=== PATIENT | male | born 1935 | race Hispanic/Latino ===

== ENCOUNTER 2022-07-29 19:06 | Emergency (ER) | payer MEDICARE, MEDICAID ==
[2022-07-29] VITALS (17 sets, daily range): BP systolic 127–160; BP diastolic 60–75
[2022-07-29 20:31] LABS: BASO% 1.7 % (0-3); EOS% 3.3 % (0-8); HEMATOCRIT 32.6 % (39.0-50.0); LYMPH% 52.8 % (15-41); MEAN CELL VOLUME 94.2 fL CALC (80.0-100.0); MEAN CORPUSCULAR HGB 31.8 pG CALC (26.0-32.0); MEAN CORPUSCULAR HGB CONC 33.7 g/dL CAL (32.0-36.0); MONO% 21.1 % (2-13); NEUT# 0.63 thou/uL (1.82-7.42); NEUT% 21.1 % (42-76); RED BLOOD COUNT 3.46 mill/uL (4.70-6.10)
[2022-07-29 21:41] LABS: ALBUMIN 3.5 g/dL (3.2-5.0); ALKALINE PHOSPHATASE 77 u/l (38-126); ANION GAP 11 (6-22 (CALC)); BILIRUBIN, TOTAL 0.1 mg/dL (0.2-1.3); BUN 29 mg/dL (8-23); BUN/CREATININE RATIO 23 (12-20 (CALC)); CARBON DIOXIDE 20 mmol/l (22-30); CHLORIDE 110 mmol/l (95-108); CREATININE 1.3 mg/dL (0.7-1.3); GFR FOR AFR.AMER. > 60 ML/MIN (>=60 (CALC)); GFR OTHER RACES 52 ML/MIN (>=60 (CALC)); POTASSIUM 5.1 mmol/l (3.5-5.1); SGOT/AST 25 u/l (19-48); SODIUM 135 mmol/l (137-146); TOTAL PROTEIN 6.4 g/dL (6.3-8.2)
[2022-07-30] VITALS (7 sets, daily range): BP systolic 121–152; BP diastolic 64–74
== END 2022-07-30 01:43 | disposition home or self-care (01) ==
LOC: ED 19:06
PROVIDERS: Emergency Medicine
DX: R51.9 Headache, unspecified (principal); I10 Essential (primary) hypertension; E11.9 Type 2 diabetes mellitus without complications; E03.9 Hypothyroidism, unspecified

== ENCOUNTER 2022-09-25 10:47 | Observation (INO) | payer MEDICARE, MEDICAID ==
[~2022-09-25] VITALS: Ht 162.6 cm; Wt 57.0 kg
[2022-09-25] VITALS (36 sets, daily range): BP systolic 120–163; BP diastolic 48–76
[2022-09-25] MEDS ORDERED: REMERON7.5 MG PO (11:59)
[2022-09-25] MEDS ORDERED: LEVOTHYROXIN50 MCG PO (12:00)
[2022-09-25] MEDS ORDERED: ALFUZOSIN HCL E10 MG PO (12:03)
[2022-09-25] MEDS ORDERED: PENTOXIFYLLI400 M1 PO (12:04)
[2022-09-25] MEDS ORDERED: NORVASC PO (12:05)
[2022-09-25] MEDS ORDERED: PEPCID40 MG PO (12:05)
[2022-09-25] MEDS ORDERED: DONEPEZIL HYDRO10 MG PO (12:07)
[2022-09-25] MEDS ORDERED: FERROUS SULFAT325 MG PO (12:08)
[2022-09-25] MEDS ORDERED: OXYBUTYNIN CHLOR5 M2 PO (12:11)
[2022-09-25] MEDS ORDERED: JANUMET1 TA1 PO (12:12)
[2022-09-25 12:45] LABS: ALBUMIN 3.8 g/dL (3.2-5.0); ALKALINE PHOSPHATASE 72 u/l (38-126); ANION GAP 15 (6-22 (CALC)); BUN 23 mg/dL (8-23); BUN/CREATININE RATIO 19 (12-20 (CALC)); CARBON DIOXIDE 15 mmol/l (22-30); CHLORIDE 112 mmol/l (95-108); CREATININE 1.2 mg/dL (0.7-1.3); GFR FOR AFR.AMER. > 60 ML/MIN (>=60 (CALC)); GFR OTHER RACES 57 ML/MIN (>=60 (CALC)); SGOT/AST 27 u/l (19-48); SODIUM 137 mmol/l (137-146); TOTAL PROTEIN 6.9 g/dL (6.3-8.2)
[2022-09-25 12:56] LABS: BASO% 2.3 % (0-3); HEMOGLOBIN 10.7 g/dl (14.0-18.0); IMMATURE GRANULOCYTES 0.6 % (0.0-5.0); LYMPH% 41.1 % (15-41); MEAN CELL VOLUME 94.7 fL CALC (80.0-100.0); MEAN CORPUSCULAR HGB 31.7 pG CALC (26.0-32.0); MEAN CORPUSCULAR HGB CONC 33.4 g/dL CAL (32.0-36.0); MONO% 23.4 % (2-13); NEUT# 0.5 thou/uL (1.82-7.42); NEUT% 28.6 % (42-76); RED BLOOD COUNT 3.38 mill/uL (4.70-6.10)
[2022-09-25 13:22] LABS: URINE BILIRUBIN - DIPSTICK NEGATIVE (NEGATIVE); URINE BLOOD DIPSTICK NEGATIVE (NEGATIVE); URINE COLOR YELLOW; URINE GLUCOSE - DIPSTICK NEGATIVE (NEGATIVE); URINE KETONE NEGATIVE (NEGATIVE); URINE LEUK ESTERASE NEGATIVE (NEGATIVE); URINE PH 5.5 (4.5-8.0); URINE PROTEIN - DIPSTICK 30 mg/dL (NEG-TRACE); URINE SPECIFIC GRAVITY 1.025; URINE UROBILINOGEN - DIPSTICK 0.2 E.U./dL (0.2)
[2022-09-25 13:27] LABS: URINE NITRITE - DIPSTICK NEGATIVE (Negative)
[2022-09-25 13:39] LABS: URINE CASTS FEW lpf (NONE-RARE)
[2022-09-25 13:40] LABS: URINE MUCUS FEW hpf (NONE-FEW)
[2022-09-26 00:04] VITALS: BP 143/53
[2022-09-26 04:05] VITALS: BP 158/74
[2022-09-26 05:28] LABS: HEMATOCRIT 29.4 % (39.0-50.0); MEAN CELL VOLUME 94.5 fL CALC (80.0-100.0); MEAN CORPUSCULAR HGB 32.2 pG CALC (26.0-32.0); RED BLOOD COUNT 3.11 mill/uL (4.70-6.10)
[2022-09-26 05:38] LABS: ALBUMIN 3.2 g/dL (3.2-5.0); ALKALINE PHOSPHATASE 72 u/l (38-126); BUN 19 mg/dL (8-23); BUN/CREATININE RATIO 17 (12-20 (CALC)); CHLORIDE 116 mmol/l (95-108); CREATININE 1.1 mg/dL (0.7-1.3); GFR FOR AFR.AMER. > 60 ML/MIN (>=60 (CALC)); GFR OTHER RACES > 60 ML/MIN (>=60 (CALC)); MAGNESIUM 1.3 mg/dL (1.6-2.3); POTASSIUM 4.4 mmol/l (3.5-5.1); SGOT/AST 26 u/l (19-48); SODIUM 138 mmol/l (137-146)
[2022-09-26 05:40] LABS: ANION GAP 7 (6-22 (CALC)); BILIRUBIN, TOTAL 0.1 mg/dL (0.2-1.3); CARBON DIOXIDE 19 mmol/l (22-30)
[2022-09-26 07:33] VITALS: BP 157/77
[2022-09-26 08:52] VITALS: BP 154/55
[2022-09-26] MEDS ORDERED: ALFUZOSIN HYDRO10 MG PO (10:28)
[2022-09-26] MEDS ORDERED: [UNRECOGNIZED DRUG - SUPPLY] SC (10:30)
[2022-09-26] MEDS ORDERED: DONEPEZIL HYDRO10 MG PO (10:30)
[2022-09-26] MEDS ORDERED: PEPCID40 MG PO (10:31)
[2022-09-26] MEDS ORDERED: FERROUS SULFAT325 MG PO (10:32)
[2022-09-26] MEDS ORDERED: ALLERGY RE50 MCG/ACT IN (10:33)
[2022-09-26] MEDS ORDERED: NEURONTIN300 MG PO (10:35)
[2022-09-26] MEDS ORDERED: JANUMET1 TA1 PO (10:36)
[2022-09-26] MEDS ORDERED: LANTUS SOL100 UNIT/M SC (10:37)
[2022-09-26] MEDS ORDERED: OXYBUTYNIN CHLO10 MG PO (10:38)
[2022-09-26] MEDS ORDERED: PENTOXIFYLLI400 M1 PO (10:39)
== END 2022-09-26 11:51 | disposition home or self-care (01) ==
LOC: ED 10:47 → ICU 14:56 → MS2 23:34
PROVIDERS: Family Medicine; ADMIT Internal Medicine; ATTEND Internal Medicine
DX: R55 Syncope and collapse (principal); S00.01XA Abrasion of scalp, initial encounter; S00.03XA Contusion of scalp, initial encounter; E87.20 Acidosis, unspecified; D72.819 Decreased white blood cell count, unspecified; E83.42 Hypomagnesemia; I10 Essential (primary) hypertension; E11.9 Type 2 diabetes mellitus without complications; G30.9 Alzheimer's disease, unspecified; F02.80 Dementia in other diseases classified elsewhere, unspecified severity, without behavioral disturbance, psychotic disturbance, mood disturbance, and anxiety; E03.9 Hypothyroidism, unspecified; E78.5 Hyperlipidemia, unspecified; N40.0 Benign prostatic hyperplasia without lower urinary tract symptoms; W18.30XA Fall on same level, unspecified, initial encounter; Y92.009 Unspecified place in unspecified non-institutional (private) residence as the place of occurrence of the external cause; Z20.822 Contact with and (suspected) exposure to COVID-19
CPT/HCPCS: J1650; J3475